=== PATIENT | male | born 2000 | race Two or more races ===

== ENCOUNTER 2024-12-17 12:35 | Emergency (ER) | payer SELFPAY ==
[2024-12-17] MEDS: Erythromycin Base 0.5% Ophth Oint 1 GM Tube EYELF ONE (13:36)
== END 2024-12-17 13:45 | disposition home or self-care (01) ==
LOC: JD.ED 12:35
DX: S05.02XA Injury of conjunctiva and corneal abrasion without foreign body, left eye, initial encounter (principal); W20.8XXA Other cause of strike by thrown, projected or falling object, initial encounter
CPT/HCPCS: 99283; A9270